=== PATIENT | female | born 1980 | race Caucasian/White ===

== ENCOUNTER 2023-03-16 18:48 | Emergency (ER) | payer OTHER, SELFPAY ==
[2023-03-16 18:49] VITALS: BP 140/89; PULSE 76; RESP 20; TEMP 36.6; O2SAT 98
== END 2023-03-16 21:13 | disposition left against medical advice (07) ==
LOC: ANHED 21:08
DX: K08.89 Other specified disorders of teeth and supporting structures (principal)
CPT/HCPCS: 99199